=== PATIENT | female | born 1990 | race Two or more races ===

== ENCOUNTER 2016-08-06 08:06 | Emergency (ER) | payer OTHER ==
[2016-08-06] MEDS ORDERED: Ondansetron INJ* 2 MG/ML VIAL IV ONE (08:32)
--- NOTE | 2016-08-06 08:34 | ED ---
Abdominal Pain/Female - HPI Summary HPI Summary: 26 F w/ PMH of ovarian cyst presents with RLQ for 2 days. Pain started periumblicially and traveled to her RLQ. Pain is worst when urinating feel more pressure like. Pain is worst with leg movement. She has not had this pain before. She has had surgery for an ovarian cyst. Last meal was 8pm last night. She admits to nausea and constipation but denies any vomiting or diarrhea. She denies any fever. She denies any dysuria, frequency, or hematuria. She admits urgency and pelvic discomfort with urination. LMP was Jul 20. - History of Current Complaint Chief Complaint: EDAbdPain Stated Complaint: LOWER RIGHT ABD PAIN Time Seen by Provider: 08/06/16 08:19 Pain Intensity: 7 Allergies/Adverse Reactions: Allergies Allergy/AdvReac Type Severity Reaction Status Date / Time No Known Allergies Allergy Verified 08/06/16 08:16 PMH/Surg Hx/FS Hx/Imm Hx Cardiovascular History: Denies: Hx Hypertension GI History: Reports: Other GI Disorders - history of ovarian cyst Infectious Disease History: No Infectious Disease History: Reports: Traveled Outside the [place] in Last 30 Days - Family History Known Family History: Negative: Cardiac Disease - Social History Alcohol Use: Occasionally Substance Use Type: Reports: None Smoking Status (MU): Never Smoked Tobacco Review of Systems Negative: Fever Negative: Chest Pain Positive: Abdominal Pain - RLQ, Nausea. Negative: Vomiting, Diarrhea All Other Systems Reviewed And Are Negative: Yes Physical Exam Triage Information Reviewed: Yes Vital Signs On Initial Exam: Initial Vitals Temp Pulse Resp BP Pulse Ox 98.2 F 133 18 132/81 100 08/06/16 08:11 08/06/16 08:11 08/06/16 08:11 08/06/16 08:11 08/06/16 08:11 Vital Signs Reviewed: Yes Appearance: Positive: Well-Appearing Skin: Positive: Warm, Dry Head/Face: Positive: Normal Head/Face Inspection ENT: Positive: Normal ENT inspection, Pharynx normal, TMs normal Respiratory/Lung Sounds: Positive: Clear to Auscultation, Breath Sounds Present Cardiovascular: Positive: Normal, RRR Abdomen Description: Positive: Soft, Other: - tenderness to RLQ, negative rebound tenderness, pos obturator Bowel Sounds: Positive: Present Diagnostics - Vital Signs Vital Signs Temp Pulse Resp BP Pulse Ox 08/06/16 08:11 98.2 F 133 18 132/81 100 - Laboratory Result Diagrams: 08/06/16 09:09 08/06/16 09:09 Lab Statement: Any lab studies that have been ordered have been reviewed, and results considered in the medical decision making process. - CT ab CT Interpretation: No Acute Changes - IMPRESSION: 1. Normal appendix documented. 2. Negative for obstructive uropathy or CT findings of pyelonephritis or cystitis. Correlate with urinalysis. 3. Probable dermoid cyst of the RIGHT ovary and additional involuting follicular or hemorrhagic cyst. Consider pelvic ultrasound for further assessment. Negative for appreciable free pelvic fluid. CT Interpretation Completed By: Radiologist - Ultrasound No standard instances Ultrasound Interpretation: Positive (See Comments) - IMPRESSION: 1. Heterogeneous echogenicity tree 0.9 x 3.1 x 4.6 cm lesion in the RIGHT ovary with large regions of hyperechogenicity corresponding with the CT finding suspicious for a dermoid cyst. 2. 1.6 cm maximum dimension partially decompressed follicular or hemorrhagic cyst of the RIGHT ovary. Ultrasound Interpretation Completed By: Radiologist Re-Evaluation - Re-Evaluation First Eval Re-Evaluation Time: 09:20 Change: Unchanged Comment: explained u/s did not show appendix so need CT, patient understands, declines pain medication at this time Abdominal Pain Fem Course/Dx - Course Course Of Treatment: 26 F presents with RLQ for 2 days. started periumblical admits to anoerxia and nausea. tenderness to RLQ, has history of dermoid cyst on left that was removed with surgery. u/a appendix not visualized will CT, labs WBC and CRP elevated, CT normal appendix, cyst seen, patient says would like u/s, transvaginal u/s: potential dermoid cyst, offered to treat for UTI due to having urinary symptoms and +1 leuko esterase but patient declined and [facility] , stated that if urinary culture comes back positive will call her, will have follow up with obgyn, patient agrees with plan - Diagnoses Differential Diagnosis: Positive: Appendicitis, Ovarian Cyst, Pelvic Inflammatory Disease, Urinary Tract Infection Provider Diagnoses: Ovarian cyst Discharge - Discharge Plan Condition: Good Disposition: HOME Patient Education Materials: Ovarian Cyst (ED) Referrals: Paty Freed MD [Medical Doctor] - Additional Instructions: Follow up with obgyn Take Tylenol or ibuprofen very 6 hours Return to ED if develop fever or any new or worsening symptoms
[2016-08-06] MEDS: NS 0.9% 1000 ML* 2,000 ML IV ONE ×2 (09:12→11:28)
--- NOTE | 2016-08-06 09:12 | RAD ---
Indication: Right lower quadrant pain. Duplex Doppler sonography right lower quadrant was performed in left high frequency linear transducer as well as curved array transducer. There is no evidence of tubular fluid-filled structure to suggest appendicitis. Normal appendix is not visualized. No free fluid is identified. IMPRESSION: Appendix not visualized.
[2016-08-06 09:26] LABS: Hematocrit 43 % (35-47); Hemoglobin 14.1 g/dl (12.0-16.0); Mean Corpuscular HGB Conc 33 g/dl (31-36); Mean Corpuscular Hemoglobin 30 pg (27-31); Mean Corpuscular Volume 90 fL (80-97); Mean Platelet Volume 9 um3 (7.4-10.4); Red Blood Count 4.78 10^6/ul (4.0-5.4); Red Cell Distribution Width 13 % (10.5-15); White Blood Count 11.8 10^3/ul (3.5-10.8)
[2016-08-06 09:31] LABS: Urine Bacteria Absent (Absent); Urine Bilirubin Negative (Negative); Urine Glucose Negative (Negative); Urine Nitrite Negative (Negative)
[2016-08-06 09:44] LABS: Albumin 4.7 g/dL (3.2-5.2); BUN/Creatinine Ratio 8.6 (8-20); Calcium 9.8 mg/dL (8.6-10.3); EGFR African American 131.1 (>60); Globulin 3.2 g/dL (2-4); Potassium 3.5 mmol/L (3.5-5.0); Total Bilirubin 0.9 mg/dL (0.2-1.0); Total Protein 7.9 g/dL (6.4-8.9)
[2016-08-06] MEDS ORDERED: Iohexol 300* (CONTRAST) 10 ML SDV IV ONE (10:44)
--- NOTE | 2016-08-06 12:33 | RAD ---
INDICATION: RIGHT lower quadrant pain. Pressure when urinary voiding. COMPARISON: None. TECHNIQUE: Multidetector CT images were obtained from the lung bases to the ischial tuberosities with 67 mL Omnipaque 300 IV and oral contrast. Multiplanar reformation. REPORT: Unremarkable visualized inferior thorax. The liver, gallbladder, pancreas, and spleen are unremarkable. Enteric contrast extends to the transverse colon. No CT abnormality of the upper GI, small bowel, appendix visualized medial to the cecum overlying the RIGHT pelvic sidewall, or colon evident. Moderate rectal distention with formed stool. Negative for ascites, free air, hernias. Normal adrenal glands. Unremarkable kidneys with symmetric nephrograms and pyelograms. Negative for hydronephrosis or focal renal lesions. Unremarkable partially visualized nondilated ureters. Unremarkable partially distended urinary bladder as well as the rightward deviated uterus and LEFT adnexal region. 2.3 x 3.7 x 2.9 cm well-circumscribed RIGHT ovarian lesion with foci of hypodensity is most suspicious for a dermoid cyst. Cephalad to the probable dermoid cyst a 1.8 cm maximum dimension hypodense lesion of the RIGHT ovary is identified with some concave inward margins most suspicious for an involuting follicular or hemorrhagic cyst. Negative for lymphadenopathy. Unremarkable abdominal aorta and iliac arteries. Physiologic distention of the IVC. Negative for suspicious osseous lesions. IMPRESSION: 1. Normal appendix documented. 2. Negative for obstructive uropathy or CT findings of pyelonephritis or cystitis. Correlate with urinalysis. 3. Probable dermoid cyst of the RIGHT ovary and additional involuting follicular or hemorrhagic cyst. Consider pelvic ultrasound for further assessment. Negative for appreciable free pelvic fluid.
--- NOTE | 2016-08-06 13:48 | RAD ---
Indication: Suggestion of RIGHT ovary dermoid cyst on CT of the same date. RIGHT lower quadrant pain. Comparison: CT abdomen pelvis of the same date. Technique: Transvaginal pelvic ultrasound. Report: Unremarkable 7.6 x 3.3 x 4.2 cm anteverted uterus with 13.5 mm endometrium. Negative for free pelvic fluid. 5.4 x 4.1 x 4.9 cm RIGHT ovary with documented vascular flow. Heterogeneous echogenicity tree 0.9 x 3.1 x 4.6 cm lesion in the RIGHT ovary with large regions of hyperechogenicity corresponding with the CT finding suspicious for a dermoid cyst. No discrete fluid fluid level evident. A dominant 1.6 cm maximum dimension partially decompressed cyst with low-level internal echoes is also noted at the RIGHT ovary corresponding with the CT finding suspicious for an involuting hemorrhagic cyst. Unremarkable 3.2 x 2.1 x 3.2 cm LEFT ovary with multiple small follicles and normal vascular flow on Doppler. No visualized extra ovarian adnexal region lesions. IMPRESSION: 1. Heterogeneous echogenicity tree 0.9 x 3.1 x 4.6 cm lesion in the RIGHT ovary with large regions of hyperechogenicity corresponding with the CT finding suspicious for a dermoid cyst. 2. 1.6 cm maximum dimension partially decompressed follicular or hemorrhagic cyst of the RIGHT ovary.
[2016-08-06 14:37] VITALS: BP 108/68
--- NOTE | 2016-08-09 09:00 | ED ---
Progress - Progress Note Progress Note: Pt's urine cx reveals enterococcus faecalis - no meds at time of d/c as pt was found to have an ovarian cyst causing her pain. Will start anbx based on list of sens's (see "microbiology" for details). LMTC. Re-Evaluation - Re-Evaluation First Eval Re-Evaluation Time: 09:20 Change: Unchanged Comment: explained u/s did not show appendix so need CT, patient understands, declines pain medication at this time Course/Dx - Course Course Of Treatment: 26 F presents with RLQ for 2 days. started periumblical admits to anoerxia and nausea. tenderness to RLQ, has history of dermoid cyst on left that was removed with surgery. u/a appendix not visualized will CT, labs WBC and CRP elevated, CT normal appendix, cyst seen, patient says would like u/s, transvaginal u/s: potential dermoid cyst, offered to treat for UTI due to having urinary symptoms and +1 leuko esterase but patient declined and says [facility] , stated that if urinary culture comes back positive will call her, will have follow up with obgyn, patient agrees with plan - Diagnoses Provider Diagnoses: Ovarian cyst
== END 2016-08-06 14:35 | disposition home or self-care (01) ==
LOC: ED 08:06
DX: N83.201 Unspecified ovarian cyst, right side (principal); R10.31 Right lower quadrant pain; R11.0 Nausea
CPT/HCPCS: 36415; 74177; 76705; 76830; 80053; 81003; 81015; 83690; 84702; 85025; 86141; 87077; 87086; 87186; 96374; 99282; J2405; Q9967